=== PATIENT | male | born 1935 | race African-American/Black ===

== ENCOUNTER 2017-04-13 05:58 | Emergency (ER) | payer MEDICARE, MEDICAID ==
[~2017-04-13] VITALS: Ht 170.2 cm; Wt 70.0 kg
[~2017-04-13 05:58] MED LIST: AMLO10TA80; ASPI-1158; ATOR20TA65 PO; CILO100T; GABA-529; GEMF600T; LEVO25TA7 PO; LISINOPRIL; LORA2TAB95 PO; METO-539 PO; PREVACID; PROT40 PO
[2017-04-13] MEDS ORDERED: KETOROLAC 30MG/ML VIAL IV STA (06:43)
[2017-04-13 07:33] LABS: D-DIMER < 0.19 mg/L FEU (<0.50); PARTIAL THROMBOPLASTIN TIME 27.2 sec (23.4-31.0)
[2017-04-13 07:35] LABS: EOSINOPHILS % 1.8 % (0.0-5.0); HEMATOCRIT. 43.7 % (42.0-52.0); HEMOGLOBIN. 14.4 g/dL (14.0-18.0); LYMPHOCYTES % 29.7 % (20.0-50.0); MEAN CORPUSCULAR HEMOGLOBIN 31.5 pg (28.0-32.0); MEAN CORPUSCULAR VOLUME 95.6 fL (80.0-94.0); MONOCYTES % 7.6 % (2.0-8.0); NEUTROPHILS % 59.9 % (40.0-76.0); PLATELET 286 x1000/uL (130-400); RED BLOOD CELL COUNT 4.57 mill/uL (4.7-6.1); RED CELL DISTRIBUTION WIDTH 15.3 % (11.6-14.6)
[2017-04-13 07:36] LABS: CARBON DIOXIDE 25 mEq/L (21-32); CHLORIDE 94 mEq/L (98-107); ETHANOL BLOOD < 10 mg/dL; TROPONIN I < 0.02 ng/mL (0.00-0.04)
[2017-04-13] MEDS ORDERED: ONDANSETRON HCL 4MG/2ML VIAL IV ONE (08:15)
[2017-04-13] MEDS ORDERED: MORPHINE SULFATE 4 MG/ML CPJ (NOT FOR IM USE) IV ONE (08:15)
[2017-04-13 08:20] LABS: *AMPHETAMINES SCREEN URINE NEGATIVE (NEGATIVE); *BARBITURATES SCREEN URINE NEGATIVE (NEGATIVE); *BENZODIAZEPINES SCREEN URINE NEGATIVE (NEGATIVE); *COCAINE SCREEN URINE PRESUMTIVE POSITIVE (NEGATIVE); CANNABINOID URINE SCREEN NEGATIVE (NEGATIVE); METHADONE URINE SCREEN NEGATIVE (NEGATIVE); OPIATES URINE SCREEN NEGATIVE (NEGATIVE); PHENCYCLIDINE URINE SCREEN NEGATIVE (NEGATIVE)
[2017-04-13 10:32] VITALS: BP 144/60
[2017-04-24] MEDS ORDERED: LOV40 SQ (12:09)
[2017-04-24] MEDS ORDERED: DOCU-138 PO (12:10)
[2017-04-24] MEDS ORDERED: GABA-531 PO (12:12)
[2017-04-24] MEDS ORDERED: LORA2TAB2 PO (12:12)
[2017-04-24] MEDS ORDERED: HYDR-4133 PO (12:20)
[2017-04-24] MEDS ORDERED: EMTR1TAB12 PO (12:20)
[2017-04-24] MEDS ORDERED: ACET-2178 PO (12:20)
[2017-04-24] MEDS ORDERED: SIMV20TA2 PO (12:20)
[2017-04-24] MEDS ORDERED: HYDR-523 PO (12:20)
[2017-04-24] MEDS ORDERED: DOLU50TA PO (12:20)
[2017-04-24] MEDS ORDERED: LACT10SO6 PO (12:21)
== END 2017-04-13 10:46 | disposition home or self-care (01) ==
LOC: ER 05:58
DX: G62.9 Polyneuropathy, unspecified (principal); R07.89 Other chest pain; G89.29 Other chronic pain; F20.9 Schizophrenia, unspecified; K21.9 Gastro-esophageal reflux disease without esophagitis; F41.9 Anxiety disorder, unspecified; I10 Essential (primary) hypertension; F14.129 Cocaine abuse with intoxication, unspecified; Z79.82 Long term (current) use of aspirin; F14.10 Cocaine abuse, uncomplicated; G31.9 Degenerative disease of nervous system, unspecified; Z87.81 Personal history of (healed) traumatic fracture; R51 Headache
CPT/HCPCS: 36415; 70450; 71010; 80053; 80305; 84484; 85025; 85379; 85610; 85730; 93005; 93970; 96372; 96374; 96375; 99283; 99285; G0482; J1885; J2270; J2405

== ENCOUNTER 2017-04-13 11:56 | Emergency (ER) | payer MEDICARE, MEDICAID ==
[~2017-04-13] VITALS: Ht 154.9 cm; Wt 50.0 kg
[~2017-04-13 11:56] MED LIST changes: -METO-539 PO; +METO50TA5 PO
[2017-04-13] MEDS ORDERED: KETOROLAC 15MG/ML VIAL IM ONE (13:30)
[2017-04-13 14:50] VITALS: BP 165/84
== END 2017-04-13 14:53 | disposition home or self-care (01) ==
LOC: ER 13:46
DX: G62.9 Polyneuropathy, unspecified (principal); R03.0 Elevated blood-pressure reading, without diagnosis of hypertension; Z87.81 Personal history of (healed) traumatic fracture; Z79.82 Long term (current) use of aspirin; Z79.899 Other long term (current) drug therapy; Z87.891 Personal history of nicotine dependence
CPT/HCPCS: 96372; 99283; J1885

== ENCOUNTER 2017-06-04 00:37 | Emergency (ER) | payer MEDICARE, MEDICAID ==
[~2017-06-04] VITALS: Ht 157.5 cm; Wt 66.0 kg
[~2017-06-04 00:37] MED LIST changes: +ACET-2178 PO; +DOCU-138 PO; +DOLU50TA PO; +EMTR1TAB12 PO; -GABA-529; +GABA-531 PO; +HYDR-4133 PO; +HYDR-523 PO; +LACT10SO6 PO; +LORA2TAB2 PO; +LOV40 SQ; +METO-539 PO; -METO50TA5 PO; +SIMV20TA2 PO
[2017-06-04 06:27] VITALS: BP 148/72
[2017-06-04] MEDS: ACETAMINOPHEN 325MG TABLET PO ONE (06:45)
[2017-06-04 07:31] LABS: HEMATOCRIT. 30.9 % (42.0-52.0); HEMOGLOBIN. 10.3 g/dL (14.0-18.0); MEAN CORPUSCULAR HEMOGLOBIN 30.9 pg (28.0-32.0); MEAN CORPUSCULAR VOLUME 92.6 fL (80.0-94.0); PLATELET 342 x1000/uL (130-400); RED BLOOD CELL COUNT 3.33 mill/uL (4.7-6.1); RED CELL DISTRIBUTION WIDTH 14.3 % (11.6-14.6)
[2017-06-04 08:06] LABS: CARBON DIOXIDE 25 mEq/L (21-32); CHLORIDE 103 mEq/L (98-107)
[2017-06-04 09:38] LABS: ATYPICAL LYMPHOCYTES 1
[2017-06-04 09:39] LABS: PLATELET ESTIMATE NORMAL
== END 2017-06-04 08:36 | disposition home or self-care (01) ==
LOC: ER 00:37
DX: M79.605 Pain in left leg (principal); M79.604 Pain in right leg; E78.00 Pure hypercholesterolemia, unspecified; I10 Essential (primary) hypertension; F12.10 Cannabis abuse, uncomplicated; F17.200 Nicotine dependence, unspecified, uncomplicated; Z79.01 Long term (current) use of anticoagulants; Z79.82 Long term (current) use of aspirin; Z86.718 Personal history of other venous thrombosis and embolism
CPT/HCPCS: 36415; 80053; 85025; 85610; 93970; 99285

== ENCOUNTER 2017-06-06 01:53 | Emergency (ER) | payer MEDICARE, MEDICAID ==
[~2017-06-06] VITALS: Ht 180.3 cm; Wt 65.0 kg
[2017-06-06] MEDS ORDERED: ONDANSETRON HCL 4MG/2ML VIAL IV STA (02:02)
[2017-06-06] MEDS ORDERED: KETOROLAC 30MG/ML VIAL IV STA (02:02)
[2017-06-06] MEDS ORDERED: SODIUM CHLORIDE 0.9% 1,000 ML IV ONE (02:02)
[2017-06-06 02:20] LABS: HEMATOCRIT. 35.2 % (42.0-52.0); HEMOGLOBIN. 11.8 g/dL (14.0-18.0); MEAN CORPUSCULAR HEMOGLOBIN 31.1 pg (28.0-32.0); MEAN CORPUSCULAR VOLUME 92.7 fL (80.0-94.0); MEAN PLATELET VOLUME 6.6 fl (7.4-10.4); PLATELET 413 x1000/uL (130-400); RED CELL DISTRIBUTION WIDTH 14.3 % (11.6-14.6)
[2017-06-06 02:24] LABS: CHLORIDE 101 mEq/L (98-107); INR 0.9; PROTHROMBIN TIME 9.9 sec (9.4-11.6)
[2017-06-06 02:32] LABS: CARBON DIOXIDE 25 mEq/L (21-32); CREATINE KINASE 102 IU/L (39-308)
[2017-06-06] MEDS ORDERED: LORAZEPAM 1MG TABLET PO ONE ×2 (03:15→03:45)
[2017-06-06 03:59] LABS: PLATELET ESTIMATE NORMAL
[2017-06-06] MEDS ORDERED: IOHEXOL-350 100 ML BOTTLE ONE (05:10)
[2017-06-06 06:26] VITALS: BP 138/74
== END 2017-06-06 07:09 | disposition home or self-care (01) ==
LOC: ER 01:53
DX: I73.9 Peripheral vascular disease, unspecified (principal); R51 Headache; R05 Cough; I10 Essential (primary) hypertension; E78.00 Pure hypercholesterolemia, unspecified; F17.200 Nicotine dependence, unspecified, uncomplicated; F12.10 Cannabis abuse, uncomplicated; Z79.82 Long term (current) use of aspirin
CPT/HCPCS: 36415; 70450; 71010; 72191; 73706; 80053; 82550; 85025; 85610; 93970; 96361; 96374; 96375; 99285; J1885; J2405; J7030; Q9967

== ENCOUNTER 2017-07-27 06:54 | Emergency (ER) | payer MEDICARE, MEDICAID ==
[~2017-07-27] VITALS: Ht 160 cm; Wt 58.4 kg
[2017-07-27] MEDS ORDERED: ASPIRIN 81MG TABLET PO STA (08:22)
[2017-07-27 08:41] LABS: BASOPHILS % 1.3 % (0.0-2.0); EOSINOPHILS % 0.2 % (0.0-5.0); HEMATOCRIT. 36.6 % (42.0-52.0); HEMOGLOBIN. 11.7 g/dL (14.0-18.0); LYMPHOCYTES % 33.5 % (20.0-50.0); MEAN CORPUSCULAR HEMOGLOBIN 27.8 pg (28.0-32.0); MEAN CORPUSCULAR VOLUME 86.8 fL (80.0-94.0); MEAN PLATELET VOLUME 7.1 fl (7.4-10.4); MONOCYTES % 7.9 % (2.0-8.0); NEUTROPHILS % 57.1 % (40.0-76.0); PLATELET 420 x1000/uL (130-400); RED BLOOD CELL COUNT 4.22 mill/uL (4.7-6.1); RED CELL DISTRIBUTION WIDTH 15.4 % (11.6-14.6)
[2017-07-27 08:52] LABS: D-DIMER 0.27 mg/L FEU (<0.50); PARTIAL THROMBOPLASTIN TIME 26.1 sec (23.4-31.0); PROTHROMBIN TIME 10.6 sec (9.4-11.6)
[2017-07-27 08:57] LABS: CHLORIDE 103 mEq/L (98-107); TROPONIN I < 0.02 ng/mL (0.00-0.04)
[2017-07-27] MEDS ORDERED: CLONIDINE 0.2MG TABLET PO ONE (09:00)
[2017-07-27] MEDS: NITROGLYCERIN 0.4MG TABLET SL SL PRN ×3 (09:05→09:20)
[2017-07-27] MEDS ORDERED: SODIUM CHLORIDE 0.9% 1,000 ML IV ONE (09:44)
[2017-07-27] MEDS ORDERED: ONDANSETRON HCL 4MG/2ML VIAL IV STA (09:44)
[2017-07-27] MEDS ORDERED: MORPHINE SULFATE 4 MG/ML CPJ (NOT FOR IM USE) IV STA (09:44)
[2017-07-27] MEDS ORDERED: LORAZEPAM 2MG/ML CPJ IV ONE (09:45)
[2017-07-27 13:29] VITALS: BP 142/76
[2017-07-27] MEDS ORDERED: ONDANSETRON HCL 4MG/2ML VIAL IV PRN (17:00)
[2017-07-27] MEDS ORDERED: AMLODIPINE 10MG TABLET PO SCH (17:00)
[2017-07-27] MEDS ORDERED: ENOXAPARIN 40MG/0.4ML SYR SUBCUT SCH (17:00)
[2017-07-27] MEDS ORDERED: MAGNESIUM/ALUMINUM HYDROXIDE/SIMETHICONE 30ML UDC PO PRN (17:00)
[2017-07-27] MEDS ORDERED: CLONIDINE 0.1MG TABLET PO PRN (17:00)
[2017-07-27] MEDS ORDERED: IPRATROPIUM/ALBUTEROL 0.5-3(2.5)MG/3ML NEB INH PRN (17:00)
[2017-07-27] MEDS ORDERED: GUAIFENESIN 200MG/10ML SUGAR FREE UDC PO PRN (17:00)
[2017-07-27] MEDS ORDERED: DOCUSATE SODIUM 100MG CAPSULE PO PRN (17:00)
[2017-07-27] MEDS ORDERED: ACETAMINOPHEN 325MG TABLET PO PRN (17:00)
[2017-07-28] MEDS ORDERED: ASPIRIN 81MG EC TABLET PO SCH (09:00)
== END 2017-07-27 15:39 | disposition left against medical advice (07) ==
LOC: ER 07:28 → EDBEDREQTM 12:48 → EDBEDREQ 12:48 → ER 15:39 → SUPCPDRO 16:50 → ENRESERV 17:06 → CANRESERV 17:06 → CANBEDREQ 07-28 16:22
DX: R07.89 Other chest pain (principal); F14.10 Cocaine abuse, uncomplicated; I10 Essential (primary) hypertension; D64.9 Anemia, unspecified; R00.0 Tachycardia, unspecified; I45.10 Unspecified right bundle-branch block; F17.200 Nicotine dependence, unspecified, uncomplicated; Z79.82 Long term (current) use of aspirin
CPT/HCPCS: 36415; 71045; 80053; 84484; 85025; 85379; 85610; 85730; 93005; 96361; 96374; 96375; 99285; J2060; J2270; J2405; J7030

== ENCOUNTER 2017-08-10 06:11 | Emergency (ER) | payer MEDICARE, MEDICAID ==
[~2017-08-10] VITALS: Ht 172.7 cm; Wt 50.0 kg
[2017-08-10] MEDS ORDERED: SODIUM CHLORIDE 0.9% 1,000 ML IV ONE (06:58)
[2017-08-10] MEDS ORDERED: LORAZEPAM 1MG TABLET PO ONE (07:00)
[2017-08-10 07:26] LABS: BASOPHILS % 0.7 % (0.0-2.0); EOSINOPHILS % 0.5 % (0.0-5.0); HEMATOCRIT. 40.6 % (42.0-52.0); MEAN CORPUSCULAR HEMOGLOBIN 27.6 pg (28.0-32.0); MEAN PLATELET VOLUME 7.4 fl (7.4-10.4); MONOCYTES % 9.3 % (2.0-8.0); NEUTROPHILS % 67.5 % (40.0-76.0); PLATELET 304 x1000/uL (130-400); RED BLOOD CELL COUNT 4.72 mill/uL (4.7-6.1); RED CELL DISTRIBUTION WIDTH 15.6 % (11.6-14.6)
[2017-08-10 07:34] VITALS: BP 161/90
[2017-08-10 07:35] LABS: PROTHROMBIN TIME 10.2 sec (9.4-11.6)
[2017-08-10 07:52] LABS: CHLORIDE 102 mEq/L (98-107); TROPONIN I < 0.02 ng/mL (0.00-0.04)
[2017-08-10 09:00] LABS: CLARITY URINE CLEAR (CLEAR); COLOR URINE YELLOW (YELLOW); KETONES URINE NEGATIVE (NEGATIVE); LEUKOCYTE ESTERASE URINE NEGATIVE (NEGATIVE); NITRITE URINE NEGATIVE (NEGATIVE); OCCULT BLOOD URINE NEGATIVE (NEGATIVE); PROTEIN URINE NEGATIVE (NEGATIVE); SPECIFIC GRAVITY URINE 1.021 (1.005-1.030); UROBILINOGEN URINE 0.2 E.U./dL (0.2-1.0)
[2017-08-10 09:34] LABS: *AMPHETAMINES SCREEN URINE NEGATIVE (NEGATIVE); *BARBITURATES SCREEN URINE NEGATIVE (NEGATIVE); *BENZODIAZEPINES SCREEN URINE NEGATIVE (NEGATIVE); *COCAINE SCREEN URINE PRESUMTIVE POSITIVE (NEGATIVE); OPIATES URINE SCREEN NEGATIVE (NEGATIVE)
[2017-08-10 09:35] LABS: CANNABINOID URINE SCREEN NEGATIVE (NEGATIVE); METHADONE URINE SCREEN NEGATIVE (NEGATIVE); PHENCYCLIDINE URINE SCREEN NEGATIVE (NEGATIVE)
== END 2017-08-10 09:28 | disposition left against medical advice (07) ==
LOC: ER 06:11
DX: R20.2 Paresthesia of skin (principal); F41.9 Anxiety disorder, unspecified; F14.10 Cocaine abuse, uncomplicated; I10 Essential (primary) hypertension; E78.00 Pure hypercholesterolemia, unspecified; I73.9 Peripheral vascular disease, unspecified; E03.9 Hypothyroidism, unspecified; F17.200 Nicotine dependence, unspecified, uncomplicated; R00.0 Tachycardia, unspecified; J44.9 Chronic obstructive pulmonary disease, unspecified; Z87.820 Personal history of traumatic brain injury; Z79.82 Long term (current) use of aspirin
CPT/HCPCS: 36415; 71045; 80053; 80305; 81003; 84484; 85025; 85610; 93005; 96360; 99285; J7030

== ENCOUNTER 2018-12-13 05:33 | Emergency (ER) | payer MEDICARE, MEDICAID ==
[~2018-12-13] VITALS: Ht 170.2 cm; Wt 66.0 kg
[2018-12-13] MEDS ORDERED: LISINOPRIL 10MG TABLET PO ONE (06:15)
[2018-12-13 06:49] LABS: CLARITY URINE CLEAR (CLEAR); COLOR URINE YELLOW (YELLOW); KETONES URINE NEGATIVE (NEGATIVE); LEUKOCYTE ESTERASE URINE NEGATIVE (NEGATIVE); NITRITE URINE NEGATIVE (NEGATIVE); OCCULT BLOOD URINE NEGATIVE (NEGATIVE); PROTEIN URINE NEGATIVE (NEGATIVE); SPECIFIC GRAVITY URINE 1.003 (1.005-1.030); UROBILINOGEN URINE 0.2 E.U./dL (0.2-1.0)
[2018-12-13 07:03] LABS: METHADONE URINE SCREEN NEGATIVE (NEGATIVE); OPIATES URINE SCREEN NEGATIVE (NEGATIVE)
[2018-12-13 07:04] LABS: *AMPHETAMINES SCREEN URINE NEGATIVE (NEGATIVE); *BARBITURATES SCREEN URINE NEGATIVE (NEGATIVE); *BENZODIAZEPINES SCREEN URINE NEGATIVE (NEGATIVE); *COCAINE SCREEN URINE PRESUMTIVE POSITIVE (NEGATIVE); CANNABINOID URINE SCREEN NEGATIVE (NEGATIVE); PHENCYCLIDINE URINE SCREEN NEGATIVE (NEGATIVE)
[2018-12-13 07:20] VITALS: BP 164/87
== END 2018-12-13 07:31 | disposition home or self-care (01) ==
LOC: ER 05:33
DX: T40.5X1A Poisoning by cocaine, accidental (unintentional), initial encounter (principal); Y92.89 Other specified places as the place of occurrence of the external cause; I10 Essential (primary) hypertension; Z79.899 Other long term (current) drug therapy
CPT/HCPCS: 80305; 93005; 99284

== ENCOUNTER 2018-12-30 17:40 | Inpatient (IN) | payer MEDICARE, MEDICAID ==
[~2018-12-30] VITALS: Ht 165.1 cm; Wt 56.2 kg
[2018-12-30] MEDS ORDERED: MORPHINE SULFATE 4 MG/ML CPJ (NOT FOR IM USE) IV STA (19:04)
[2018-12-30] MEDS ORDERED: METHYLPREDNISOLONE SOD SUCC 125 MG/2 ML VIAL IV STA (19:04)
[2018-12-30] MEDS ORDERED: ONDANSETRON HCL 4MG/2ML INJ IV STA (19:04)
[2018-12-30] MEDS ORDERED: LEVOFLOXACIN 500MG PREMIX 100 ML IV ONE (19:15)
[2018-12-30] MEDS ORDERED: IPRATROPIUM/ALBUTEROL 0.5-3(2.5)MG/3ML NEB HHN ONE (19:15)
[2018-12-30 19:40] LABS: CLARITY URINE CLEAR (CLEAR); COLOR URINE YELLOW (YELLOW); KETONES URINE NEGATIVE (NEGATIVE); LEUKOCYTE ESTERASE URINE NEGATIVE (NEGATIVE); NITRITE URINE NEGATIVE (NEGATIVE); OCCULT BLOOD URINE NEGATIVE (NEGATIVE); PROTEIN URINE NEGATIVE (NEGATIVE); SPECIFIC GRAVITY URINE 1.001 (1.005-1.030); UROBILINOGEN URINE 0.2 E.U./dL (0.2-1.0)
[2018-12-30 19:52] LABS: *AMPHETAMINES SCREEN URINE NEGATIVE (NEGATIVE); *BARBITURATES SCREEN URINE NEGATIVE (NEGATIVE); *BENZODIAZEPINES SCREEN URINE NEGATIVE (NEGATIVE); *COCAINE SCREEN URINE NEGATIVE (NEGATIVE); METHADONE URINE SCREEN NEGATIVE (NEGATIVE); OPIATES URINE SCREEN NEGATIVE (NEGATIVE)
[2018-12-30 19:53] LABS: CANNABINOID URINE SCREEN NEGATIVE (NEGATIVE); PHENCYCLIDINE URINE SCREEN NEGATIVE (NEGATIVE)
[2018-12-30 19:58] LABS: BASOPHILS % 1.5 % (0.0-2.0); EOSINOPHILS % 3.2 % (0.0-5.0); HEMATOCRIT. 39.2 % (42.0-52.0); HEMOGLOBIN. 12.7 g/dL (14.0-18.0); LYMPHOCYTES % 45.5 % (20.0-50.0); MEAN CORPUSCULAR HEMOGLOBIN 27.8 pg (28.0-32.0); MEAN PLATELET VOLUME 7.8 fl (7.4-10.4); MONOCYTES % 10.1 % (2.0-8.0); NEUTROPHILS % 39.7 % (40.0-76.0); PLATELET 282 x1000/uL (130-400); RED BLOOD CELL COUNT 4.55 mill/uL (4.7-6.1); RED CELL DISTRIBUTION WIDTH 17.4 % (11.6-14.6)
[2018-12-30 20:03] LABS: CHLORIDE 95 mEq/L (98-107)
[2018-12-30 20:05] LABS: PARTIAL THROMBOPLASTIN TIME 26.7 sec (23.4-31.0); PROTHROMBIN TIME 9.8 sec (9.6-11.0)
[2018-12-30 20:07] LABS: ETHANOL BLOOD < 10 mg/dL
[2018-12-30] MEDS ORDERED: LORAZEPAM 2MG/ML CPJ IV ONE (20:15)
[2018-12-30 21:15] LABS: BG BASE EXCESS -0.4 mmol/L (-2.0-2.0); BG CARBOXYHEMOGLOBIN 1.2 % (0.5-1.5); BG DEOXYHEMOGLOBIN 5.2 % (0.0-5.0); BG FRACTION INSPIRED OXYGEN 21; BG HCO3 ACT 25.2 mmol/L (22.0-26.0); BG METHEMOGLOBIN 0.2 % (0.0-1.5); BG OXYGEN SATURATION 94.7 % (92.0-98.5); BG OXYHEMOGLOBIN 93.4 % (94.0-97.0); BG PCO2 44.9 mmHg (35.0-45.0); BG PH 7.367 (7.350-7.450); BG PO2 75.7 mmHg (75.0-100.0); BG SAMPLE SITE RIGHT RADIAL; BG TOTAL HEMOGLOBIN 12.7 g/dL (12.0-18.0); BG VENT MODE ROOM AIR
[2018-12-30] MEDS ORDERED: IPRATROPIUM/ALBUTEROL 0.5-3(2.5)MG/3ML NEB INH PRN (23:15)
[2018-12-30] MEDS ORDERED: GUAIFENESIN 200MG/10ML SUGAR FREE UDC PO PRN (23:15)
[2018-12-30] MEDS ORDERED: DOCUSATE SODIUM 100MG CAPSULE PO PRN (23:15)
[2018-12-30] MEDS ORDERED: ONDANSETRON HCL 4MG/2ML INJ IV PRN (23:15)
[2018-12-30] MEDS ORDERED: ACETAMINOPHEN 325MG TABLET PO PRN (23:15)
[2018-12-30] MEDS ORDERED: LEVOFLOXACIN 500MG PREMIX 100 ML IV SCH (23:15)
[2018-12-30 23:43] VITALS: BP 156/57
[2018-12-31 00:30] VITALS: BP 156/67
[2018-12-31] MEDS: HYDROCODONE/ACETAMINOPHEN 5/325MG TABLET PO PRN ×2 (01:01→07:10)
[2018-12-31] MEDS: IPRATROPIUM/ALBUTEROL 0.5-3(2.5)MG/3ML NEB INH SCH ×4 (01:27→20:53)
[2018-12-31] MEDS: MORPHINE SULFATE 2 MG/ML CPJ (NOT FOR IM USE) IV PRN ×3 (03:47→20:22)
[2018-12-31 04:00] VITALS: BP 159/62
[2018-12-31 06:07] LABS: CHLORIDE 100 mEq/L (98-107)
[2018-12-31 06:26] LABS: BASOPHILS % 0.3 % (0.0-2.0); EOSINOPHILS % 0.1 % (0.0-5.0); HEMATOCRIT. 39.5 % (42.0-52.0); HEMOGLOBIN. 12.8 g/dL (14.0-18.0); LYMPHOCYTES % 13.1 % (20.0-50.0); MEAN CORPUSCULAR VOLUME 86.2 fL (80.0-94.0); MEAN PLATELET VOLUME 8.3 fl (7.4-10.4); MONOCYTES % 0.6 % (2.0-8.0); NEUTROPHILS % 85.9 % (40.0-76.0); PLATELET 277 x1000/uL (130-400); RED BLOOD CELL COUNT 4.58 mill/uL (4.7-6.1); RED CELL DISTRIBUTION WIDTH 17.4 % (11.6-14.6)
[2018-12-31] MEDS: METHYLPREDNISOLONE SOD SUCC 125 MG/2 ML VIAL IV SCH ×4 (06:35→23:44)
[2018-12-31 08:00] VITALS: BP 174/65
[2018-12-31] MEDS ORDERED: PNEUMOCOCCAL 23-VAL P-SAC VAC 0.5 ML IM ONE (08:00)
[2018-12-31] MEDS: ENOXAPARIN 40MG/0.4ML SYR SUBCUT SCH (09:00)
[2018-12-31] MEDS: ASPIRIN 81MG EC TABLET PO SCH (09:00)
[2018-12-31] MEDS: AMLODIPINE 10MG TABLET PO SCH (09:03)
[2018-12-31] MEDS: NICOTINE 21MG PATCH TD SCH (11:55)
[2018-12-31 12:00] VITALS: BP 169/64
[2018-12-31 16:00] VITALS: BP 132/60
[2018-12-31 20:00] VITALS: BP 162/57
[2018-12-31] MEDS: LEVOFLOXACIN 500MG PREMIX 100 ML IV SCH (22:35)
[2019-01-01] VITALS (8 sets, daily range): BP systolic 147–178; BP diastolic 55–72
[2019-01-01] MEDS: HYDROCODONE/ACETAMINOPHEN 5/325MG TABLET PO PRN (00:29)
[2019-01-01] MEDS: IPRATROPIUM/ALBUTEROL 0.5-3(2.5)MG/3ML NEB INH SCH ×4 (00:57→20:55)
[2019-01-01] MEDS ORDERED: HALOPERIDOL LACTATE 5MG/ML VIAL IM NR (04:00)
[2019-01-01] MEDS: METHYLPREDNISOLONE SOD SUCC 125 MG/2 ML VIAL IV SCH ×2 (05:09→14:39)
[2019-01-01] MEDS: ASPIRIN 81MG EC TABLET PO SCH (09:14)
[2019-01-01] MEDS: AMLODIPINE 10MG TABLET PO SCH (09:15)
[2019-01-01] MEDS: NICOTINE 21MG PATCH TD SCH (09:16)
[2019-01-01] MEDS: ENOXAPARIN 40MG/0.4ML SYR SUBCUT SCH (09:16)
[2019-01-01] MEDS: LORAZEPAM 2MG/ML CPJ IV PRN ×2 (09:17→20:25)
[2019-01-01] MEDS: QUETIAPINE FUMARATE 25MG TABLET PO SCH ×2 (11:22→21:13)
[2019-01-01] MEDS ORDERED: HALOPERIDOL 0.5MG TABLET PO PRN (14:30)
[2019-01-01] MEDS ORDERED: HALOPERIDOL LACTATE 5MG/ML VIAL IM PRN (15:00)
[2019-01-01] MEDS: HALOPERIDOL LACTATE 5MG/ML VIAL IM PRN (15:01)
[2019-01-01] MEDS ORDERED: DIPHENHYDRAMINE 50MG/ML VIAL IV PRN (16:45)
[2019-01-01] MEDS: HYDRALAZINE 20MG/ML VIAL IV PRN (17:08)
[2019-01-01] MEDS ORDERED: BICT1TAB PO (19:20)
[2019-01-01] MEDS ORDERED: OMEP40CA34 PO (19:21)
[2019-01-01] MEDS: BUDESONIDE 0.5MG/2ML NEB HHN SCH (20:55)
[2019-01-01] MEDS: GUAIFENESIN 600MG ER TABLET PO SCH (21:13)
[2019-01-01] MEDS: LEVOFLOXACIN 500MG PREMIX 100 ML IV SCH (21:14)
[2019-01-01] MEDS: METHYLPREDNISOLONE SOD SUCC 40 MG/ML VIAL IV SCH (21:14)
[2019-01-02] VITALS: BP 162/60
[2019-01-02] MEDS: IPRATROPIUM/ALBUTEROL 0.5-3(2.5)MG/3ML NEB INH SCH ×3 (02:00→21:05)
[2019-01-02 04:00] VITALS: BP 127/52
[2019-01-02] MEDS: METHYLPREDNISOLONE SOD SUCC 40 MG/ML VIAL IV SCH (05:08)
[2019-01-02] MEDS: HALOPERIDOL LACTATE 5MG/ML VIAL IM PRN (07:52)
[2019-01-02 08:00] VITALS: BP 159/75
[2019-01-02] MEDS: BUDESONIDE 0.5MG/2ML NEB HHN SCH ×2 (08:42→21:04)
[2019-01-02] MEDS: GUAIFENESIN 600MG ER TABLET PO SCH ×2 (08:44→20:21)
[2019-01-02] MEDS: QUETIAPINE FUMARATE 25MG TABLET PO SCH ×2 (08:44→20:21)
[2019-01-02] MEDS: ASPIRIN 81MG EC TABLET PO SCH (08:44)
[2019-01-02] MEDS: AMLODIPINE 10MG TABLET PO SCH (08:44)
[2019-01-02] MEDS: ENOXAPARIN 40MG/0.4ML SYR SUBCUT SCH (08:45)
[2019-01-02] MEDS: NICOTINE 21MG PATCH TD SCH (09:42)
[2019-01-02 12:00] VITALS: BP 140/61
[2019-01-02 16:00] VITALS: BP 150/63
[2019-01-02 20:00] VITALS: BP 164/77
[2019-01-02] MEDS: HYDRALAZINE 20MG/ML VIAL IV PRN (20:21)
[2019-01-02] MEDS ORDERED: LEVOFLOXACIN 500MG TABLET PO SCH (21:00)
[2019-01-02] MEDS: LORAZEPAM 2MG/ML CPJ IV PRN (22:30)
[2019-01-03] VITALS: BP 125/61
[2019-01-03] MEDS: IPRATROPIUM/ALBUTEROL 0.5-3(2.5)MG/3ML NEB INH SCH ×3 (01:52→13:14)
[2019-01-03 04:00] VITALS: BP 130/67
[2019-01-03 08:00] VITALS: BP 142/68
[2019-01-03] MEDS: ENOXAPARIN 40MG/0.4ML SYR SUBCUT SCH (08:50)
[2019-01-03] MEDS: NICOTINE 21MG PATCH TD SCH (08:50)
[2019-01-03] MEDS: GUAIFENESIN 600MG ER TABLET PO SCH (08:51)
[2019-01-03] MEDS: QUETIAPINE FUMARATE 25MG TABLET PO SCH (08:51)
[2019-01-03] MEDS: ASPIRIN 81MG EC TABLET PO SCH (08:51)
[2019-01-03] MEDS: AMLODIPINE 10MG TABLET PO SCH (08:51)
[2019-01-03] MEDS ORDERED: METHYLPREDNISOLONE SOD SUCC 40 MG/ML VIAL IV SCH (09:00)
[2019-01-03] MEDS: BUDESONIDE 0.5MG/2ML NEB HHN SCH (09:17)
[2019-01-03 12:00] VITALS: BP 133/66
[2019-01-03 13:40] VITALS: BP 133/66
== END 2019-01-03 16:10 | disposition home or self-care (01) | DRG 189 ==
LOC: ER 17:40 → 5WST 21:48 → EDBEDREQ 21:50 → EDBEDREQTM 21:50 → ENRESERV 23:08 → 5WST 01-01 08:24
PROVIDERS: ADMIT Hospitalist; ATTEND Hospitalist
DX: J96.00 Acute respiratory failure, unspecified whether with hypoxia or hypercapnia (principal); J44.1 Chronic obstructive pulmonary disease with (acute) exacerbation; E03.9 Hypothyroidism, unspecified; E78.5 Hyperlipidemia, unspecified; F17.210 Nicotine dependence, cigarettes, uncomplicated; I10 Essential (primary) hypertension; F14.10 Cocaine abuse, uncomplicated; Z79.82 Long term (current) use of aspirin; Z79.899 Other long term (current) drug therapy; Z71.6 Tobacco abuse counseling; Z78.1 Physical restraint status
CPT/HCPCS: 36415; 36600; 71045; 80305; 80320; 82375; 82805; 83605; 83880; 84484; 90732; 93005; 93970; 94640; 96365; 96375; 99285; J0360; J1630; J1650; J1956; J2060; J2270; J2405; J2920; J2930; J7050; J7620; J7626; G0480

== ENCOUNTER 2020-05-18 17:15 | Emergency (ER) | payer MEDICARE, MEDICAID ==
[~2020-05-18] VITALS: Ht 167.6 cm; Wt 71.0 kg
[~2020-05-18 17:15] MED LIST changes: -ACET-2178 PO; +BICT1TAB PO; +OMEP40CA12 PO; +TOPUD PO
[2020-05-18 18:01] VITALS: BP 121/76
== END 2020-05-18 18:57 | disposition home or self-care (01) ==
LOC: ER 17:15
DX: Z53.21 Procedure and treatment not carried out due to patient leaving prior to being seen by health care provider (principal)

== ENCOUNTER 2020-08-04 19:19 | Inpatient (IN) | payer MEDICARE, MEDICAID ==
[~2020-08-04] VITALS: Ht 170.2 cm; Wt 68.5 kg
[~2020-08-04 19:19] MED LIST changes: -ASPI-1158; +ASPI-1406; -GABA-531 PO; +GABA-532 PO
[2020-08-04] MEDS ORDERED: ACETAMINOPHEN 325MG TABLET PO ONE (20:45)
[2020-08-04 22:48] LABS: CHLORIDE 103 mEq/L (98-107)
[2020-08-05 01:53] VITALS: BP 159/79
[2020-08-05 04:00] VITALS: BP 118/62
[2020-08-05] MEDS ORDERED: MORPHINE SULFATE 2 MG/ML CPJ (NOT FOR IM USE) IV PRN (06:45)
[2020-08-05] MEDS ORDERED: IPRATROPIUM/ALBUTEROL 0.5-3(2.5)MG/3ML NEB HHN PRN (06:45)
[2020-08-05 08:00] VITALS: BP 140/59
[2020-08-05] MEDS ORDERED: LEVOFLOXACIN 500MG PREMIX 100 ML IV SCH (08:00)
[2020-08-05] MEDS ORDERED: IPRATROPIUM/ALBUTEROL 0.5-3(2.5)MG/3ML NEB HHN SCH (08:00)
[2020-08-05] MEDS ORDERED: LORAZEPAM 2MG/ML CPJ IV PRN (10:15)
[2020-08-05] MEDS ORDERED: RISPERIDONE 0.5MG TABLET PO SCH ×2 (10:15→12:45)
[2020-08-05] MEDS ORDERED: ACETAMINOPHEN 325MG TABLET PO PRN (11:15)
[2020-08-05] MEDS ORDERED: TRAMADOL 50MG TABLET PO PRN (11:15)
[2020-08-05] MEDS ORDERED: LORAZEPAM 1MG TABLET PO PRN (12:45)
[2020-08-05 13:00] VITALS: BP 145/55
== END 2020-08-05 16:05 | disposition left against medical advice (07) | DRG 641 ==
LOC: EDBD → ER 19:19 → 8WST 22:17 → ENRESERV 23:40
PROVIDERS: ADMIT Internal Medicine; ATTEND Internal Medicine
DX: E87.1 Hypo-osmolality and hyponatremia (principal); F05 Delirium due to known physiological condition; F03.90 Unspecified dementia, unspecified severity, without behavioral disturbance, psychotic disturbance, mood disturbance, and anxiety; I10 Essential (primary) hypertension; J44.9 Chronic obstructive pulmonary disease, unspecified; Z79.891 Long term (current) use of opiate analgesic; Z79.899 Other long term (current) drug therapy; Z79.82 Long term (current) use of aspirin
CPT/HCPCS: 36415; 71045; 80053; 83880; 84484; 93005; 99285; J1956; J2270

== ENCOUNTER 2020-08-07 05:42 | Emergency (ER) | payer MEDICARE, MEDICAID ==
[~2020-08-07] VITALS: Ht 172.7 cm; Wt 73.0 kg
[2020-08-07 06:38] LABS: BASOPHILS % 1.5 % (0.0-2.0); EOSINOPHILS % 4.9 % (0.0-5.0); HEMATOCRIT. 39.4 % (42.0-52.0); LYMPHOCYTES % 48.4 % (20.0-50.0); MEAN CORPUSCULAR HEMOGLOBIN 24.5 pg (28.0-32.0); MEAN CORPUSCULAR VOLUME 80.1 fL (80.0-94.0); MEAN PLATELET VOLUME 7.7 fl (7.4-10.4); MONOCYTES % 9.3 % (2.0-8.0); NEUTROPHILS % 35.9 % (40.0-76.0); PLATELET 339 x1000/uL (130-400); RED BLOOD CELL COUNT 4.92 mill/uL (4.7-6.1); RED CELL DISTRIBUTION WIDTH 17.5 % (11.6-14.6)
[2020-08-07 06:44] LABS: CHLORIDE 104 mEq/L (98-107)
[2020-08-07] MEDS ORDERED: ACETAMINOPHEN 325MG TABLET PO ONE (07:15)
[2020-08-07 08:32] VITALS: BP 136/60
== END 2020-08-07 09:12 | disposition home or self-care (01) ==
LOC: EDBD → ER 06:02
DX: M79.18 Myalgia, other site (principal); I10 Essential (primary) hypertension; J44.9 Chronic obstructive pulmonary disease, unspecified; F03.90 Unspecified dementia, unspecified severity, without behavioral disturbance, psychotic disturbance, mood disturbance, and anxiety
CPT/HCPCS: 36415; 71045; 80053; 83880; 84484; 85025; 93005; 99285

== ENCOUNTER 2020-08-25 15:22 | Emergency (ER) | payer MEDICARE, MEDICAID ==
[~2020-08-25] VITALS: Ht 175.3 cm; Wt 73.0 kg
[2020-08-25] MEDS ORDERED: ACETAMINOPHEN 325MG TABLET PO ONE (18:00)
[2020-08-25 20:59] LABS: BASOPHILS % 1.3 % (0.0-2.0); EOSINOPHILS % 2.5 % (0.0-5.0); HEMATOCRIT. 35.8 % (42.0-52.0); HEMOGLOBIN. 11.2 g/dL (14.0-18.0); LYMPHOCYTES % 50.1 % (20.0-50.0); MEAN CORPUSCULAR HEMOGLOBIN 24.4 pg (28.0-32.0); MEAN CORPUSCULAR VOLUME 77.8 fL (80.0-94.0); MEAN PLATELET VOLUME 8.1 fl (7.4-10.4); MONOCYTES % 11.1 % (2.0-8.0); PLATELET 290 x1000/uL (130-400); RED CELL DISTRIBUTION WIDTH 16.6 % (11.6-14.6)
[2020-08-25 21:09] LABS: CHLORIDE 104 mEq/L (98-107)
[2020-08-26] MEDS ORDERED: CEPH500C2 MT (00:12)
[2020-08-26] MEDS ORDERED: CLOT15CR27 TP (00:13)
[2020-08-26 00:30] LABS: CLARITY URINE CLEAR (CLEAR); COLOR URINE YELLOW (YELLOW); KETONES URINE NEGATIVE (NEGATIVE); LEUKOCYTE ESTERASE URINE NEGATIVE (NEGATIVE); NITRITE URINE NEGATIVE (NEGATIVE); OCCULT BLOOD URINE NEGATIVE (NEGATIVE); PROTEIN URINE NEGATIVE (NEGATIVE); UROBILINOGEN URINE 0.2 E.U./dL (0.2-1.0)
[2020-08-26 01:02] VITALS: BP 151/64
== END 2020-08-26 01:27 | disposition home or self-care (01) ==
LOC: ER 15:22
DX: N48.1 Balanitis (principal); N39.0 Urinary tract infection, site not specified; R51.9 Headache, unspecified; I10 Essential (primary) hypertension; Z79.899 Other long term (current) drug therapy
CPT/HCPCS: 36415; 71045; 80053; 81003; 83880; 84484; 85025; 93005; 99285

== ENCOUNTER 2020-09-01 14:45 | Emergency (ER) | payer MEDICARE, MEDICAID ==
[~2020-09-01] VITALS: Ht 167.6 cm; Wt 75.0 kg
[~2020-09-01 14:45] MED LIST changes: +CEPH500C2 MT; +CLOT15CR27 TP
[2020-09-01 14:49] VITALS: BP 186/90
[2020-09-01 17:05] LABS: BASOPHILS % 0.7 % (0.0-2.0); EOSINOPHILS % 1.7 % (0.0-5.0); HEMOGLOBIN. 10.8 g/dL (14.0-18.0); LYMPHOCYTES % 44.2 % (20.0-50.0); MEAN CORPUSCULAR HEMOGLOBIN 24.1 pg (28.0-32.0); MEAN CORPUSCULAR VOLUME 78.2 fL (80.0-94.0); MEAN PLATELET VOLUME 7.9 fl (7.4-10.4); MONOCYTES % 9.5 % (2.0-8.0); NEUTROPHILS % 43.9 % (40.0-76.0); PLATELET 293 x1000/uL (130-400); RED BLOOD CELL COUNT 4.47 mill/uL (4.7-6.1); RED CELL DISTRIBUTION WIDTH 17.1 % (11.6-14.6)
[2020-09-01 17:06] LABS: CHLORIDE 106 mEq/L (98-107)
[2020-09-01] MEDS: ACETAMINOPHEN 500MG TABLET PO ONE (17:29)
[2020-09-01] MEDS ORDERED: TOPUD PO (17:44)
[2020-09-01 18:28] LABS: CLARITY URINE CLOUDY (CLEAR); COLOR URINE YELLOW (YELLOW); KETONES URINE NEGATIVE (NEGATIVE); LEUKOCYTE ESTERASE URINE NEGATIVE (NEGATIVE); NITRITE URINE NEGATIVE (NEGATIVE); OCCULT BLOOD URINE NEGATIVE (NEGATIVE); PH URINE 7.5 (4.5-8.0); PROTEIN URINE NEGATIVE (NEGATIVE); SPECIFIC GRAVITY URINE 1.017 (1.005-1.030)
[2020-09-01] MEDS ORDERED: CIPR500T5 MT (22:35)
== END 2020-09-01 18:06 | disposition home or self-care (01) ==
LOC: ER 14:57
DX: Z71.1 Person with feared health complaint in whom no diagnosis is made (principal); I10 Essential (primary) hypertension; Z79.899 Other long term (current) drug therapy; Z79.82 Long term (current) use of aspirin; Z98.890 Other specified postprocedural states
CPT/HCPCS: 36415; 76870; 80053; 81003; 85025; 93976; 99284

== ENCOUNTER 2020-09-01 18:17 | Emergency (ER) | payer MEDICARE, MEDICAID ==
[~2020-09-01] VITALS: Ht 167.6 cm; Wt 76.0 kg
[2020-09-01] MEDS ORDERED: ACETAMINOPHEN 325MG TABLET PO ONE (20:45)
[2020-09-01 21:51] LABS: CLARITY URINE CLEAR (CLEAR); COLOR URINE YELLOW (YELLOW); KETONES URINE NEGATIVE (NEGATIVE); LEUKOCYTE ESTERASE URINE TRACE (NEGATIVE); NITRITE URINE NEGATIVE (NEGATIVE); OCCULT BLOOD URINE NEGATIVE (NEGATIVE); PROTEIN URINE NEGATIVE (NEGATIVE); SPECIFIC GRAVITY URINE 1.021 (1.005-1.030)
[2020-09-01 22:07] LABS: *BENZODIAZEPINES SCREEN URINE NEGATIVE (NEGATIVE); *COCAINE SCREEN URINE NEGATIVE (NEGATIVE)
[2020-09-01 22:08] LABS: *AMPHETAMINES SCREEN URINE NEGATIVE (NEGATIVE); *BARBITURATES SCREEN URINE NEGATIVE (NEGATIVE); CANNABINOID URINE SCREEN NEGATIVE (NEGATIVE); METHADONE URINE SCREEN NEGATIVE (NEGATIVE); OPIATES URINE SCREEN NEGATIVE (NEGATIVE); PHENCYCLIDINE URINE SCREEN NEGATIVE (NEGATIVE)
[2020-09-01 22:13] LABS: HEMATOCRIT. 35.1 % (42.0-52.0); HEMOGLOBIN. 10.4 g/dL (14.0-18.0); MEAN CORPUSCULAR HEMOGLOBIN 23.6 pg (28.0-32.0); MEAN CORPUSCULAR VOLUME 79.3 fL (80.0-94.0); MEAN PLATELET VOLUME 7.9 fl (7.4-10.4); PLATELET 268 x1000/uL (130-400); RED BLOOD CELL COUNT 4.42 mill/uL (4.7-6.1); RED CELL DISTRIBUTION WIDTH 17.1 % (11.6-14.6)
[2020-09-01 22:19] LABS: CHLORIDE 106 mEq/L (98-107)
[2020-09-01 22:26] LABS: ETHANOL BLOOD < 10 mg/dL
[2020-09-01 22:31] LABS: PLATELET ESTIMATE NORMAL
[2020-09-01] MEDS ORDERED: CIPR500T5 MT (22:35)
[2020-09-01 23:57] VITALS: BP 145/76
== END 2020-09-01 23:59 | disposition home or self-care (01) ==
LOC: EDBD → ER 18:17
DX: N39.0 Urinary tract infection, site not specified (principal); Z20.822 Contact with and (suspected) exposure to COVID-19; Z79.899 Other long term (current) drug therapy
CPT/HCPCS: 36415; 71045; 76870; 80053; 80305; 80320; 81003; 83605; 83690; 83880; 84484; 85025; 87086; 93976; 99284; C9803; U0003; G0480

== ENCOUNTER 2020-09-06 14:50 | Emergency (ER) | payer MEDICARE, MEDICAID ==
[~2020-09-06] VITALS: Ht 177.8 cm; Wt 77.0 kg
[~2020-09-06 14:50] MED LIST changes: +CIPR500T5 MT
[2020-09-06] MEDS ORDERED: ACETAMINOPHEN 325MG TABLET PO ONE (16:15)
[2020-09-06 19:00] VITALS: BP 149/66
[2020-09-07] MEDS ORDERED: FERR324T4 MT (00:28)
[2020-09-07] MEDS ORDERED: ACET-2708 MT (00:28)
== END 2020-09-06 19:00 | disposition home or self-care (01) ==
LOC: EDBD → ER 15:02
DX: E11.42 Type 2 diabetes mellitus with diabetic polyneuropathy (principal); I10 Essential (primary) hypertension; Z13.9 Encounter for screening, unspecified; Z79.899 Other long term (current) drug therapy
CPT/HCPCS: 93970; 99284

== ENCOUNTER 2020-09-06 21:17 | Emergency (ER) | payer MEDICARE, MEDICAID ==
[~2020-09-06] VITALS: Ht 165.1 cm; Wt 70.0 kg
[2020-09-06] MEDS ORDERED: ACETAMINOPHEN 325MG TABLET PO ONE (22:45)
[2020-09-06 23:18] LABS: BASOPHILS % 0.9 % (0.0-2.0); EOSINOPHILS % 2.1 % (0.0-5.0); HEMATOCRIT. 33.1 % (42.0-52.0); HEMOGLOBIN. 9.9 g/dL (14.0-18.0); LYMPHOCYTES % 48.6 % (20.0-50.0); MEAN CORPUSCULAR HEMOGLOBIN 23.1 pg (28.0-32.0); MEAN CORPUSCULAR VOLUME 77.4 fL (80.0-94.0); MEAN PLATELET VOLUME 7.7 fl (7.4-10.4); MONOCYTES % 10.1 % (2.0-8.0); NEUTROPHILS % 38.3 % (40.0-76.0); PLATELET 285 x1000/uL (130-400); RED BLOOD CELL COUNT 4.27 mill/uL (4.7-6.1)
[2020-09-06 23:24] LABS: CHLORIDE 107 mEq/L (98-107)
[2020-09-07] MEDS ORDERED: ACET-2708 MT (00:28)
[2020-09-07] MEDS ORDERED: FERR324T4 MT (00:28)
[2020-09-07 01:01] VITALS: BP 168/82
== END 2020-09-07 01:19 | disposition home or self-care (01) ==
LOC: ER 21:17
DX: M79.18 Myalgia, other site (principal); D64.9 Anemia, unspecified; N50.89 Other specified disorders of the male genital organs; I10 Essential (primary) hypertension; J44.9 Chronic obstructive pulmonary disease, unspecified
CPT/HCPCS: 36415; 71045; 80053; 85025; 99284

== ENCOUNTER 2020-09-12 19:51 | Emergency (ER) | payer MEDICARE, MEDICAID ==
[~2020-09-12] VITALS: Ht 162.6 cm; Wt 160.0 kg
[~2020-09-12 19:51] MED LIST changes: +ACET-2708 MT; +FERR324T4 MT
[2020-09-12] MEDS ORDERED: ACETAMINOPHEN 325MG TABLET PO ONE (20:45)
[2020-09-12 21:05] VITALS: BP 158/80
== END 2020-09-12 21:12 | disposition home or self-care (01) ==
LOC: ER 19:51
DX: R53.81 Other malaise (principal); I10 Essential (primary) hypertension; Z79.899 Other long term (current) drug therapy; Z79.82 Long term (current) use of aspirin
CPT/HCPCS: 99283

== ENCOUNTER 2020-09-27 08:27 | Emergency (ER) | payer MEDICARE, MEDICAID ==
[~2020-09-27] VITALS: Ht 172.7 cm; Wt 73.0 kg
[2020-09-27] MEDS ORDERED: KETOROLAC 30MG/ML VIAL IV STA (08:51)
[2020-09-27 09:15] VITALS: BP 183/110
[2020-09-27 09:56] LABS: BASOPHILS % 1.4 % (0.0-2.0); EOSINOPHILS % 2.7 % (0.0-5.0); HEMATOCRIT. 34.3 % (42.0-52.0); LYMPHOCYTES % 38.1 % (20.0-50.0); MEAN CORPUSCULAR HEMOGLOBIN 24.5 pg (28.0-32.0); MEAN CORPUSCULAR VOLUME 76.6 fL (80.0-94.0); MEAN PLATELET VOLUME 7.7 fl (7.4-10.4); MONOCYTES % 9.5 % (2.0-8.0); NEUTROPHILS % 48.3 % (40.0-76.0); PLATELET 319 x1000/uL (130-400); RED BLOOD CELL COUNT 4.48 mill/uL (4.7-6.1); RED CELL DISTRIBUTION WIDTH 17.4 % (11.6-14.6)
[2020-09-27 10:03] LABS: CHLORIDE 106 mEq/L (98-107)
[2020-09-27 10:09] LABS: INR 0.9; PROTHROMBIN TIME 10.2 sec (9.6-11.0)
== END 2020-09-27 10:24 | disposition home or self-care (01) ==
LOC: ER 08:39
DX: R51.9 Headache, unspecified (principal); I10 Essential (primary) hypertension
CPT/HCPCS: 36415; 80053; 85025; 85610; 96374; 99283; J1885

== ENCOUNTER 2020-10-15 16:01 | Emergency (ER) | payer MEDICARE, MEDICAID ==
[~2020-10-15] VITALS: Ht 172.7 cm; Wt 63.0 kg
[2020-10-15] MEDS ORDERED: ACETAMINOPHEN 325MG TABLET PO ONE (16:30)
[2020-10-15 17:02] LABS: BASOPHILS % 1.9 % (0.0-2.0); EOSINOPHILS % 2.1 % (0.0-5.0); HEMATOCRIT. 35.2 % (42.0-52.0); HEMOGLOBIN. 11.1 g/dL (14.0-18.0); LYMPHOCYTES % 43.5 % (20.0-50.0); MEAN CORPUSCULAR HEMOGLOBIN 24.1 pg (28.0-32.0); MEAN CORPUSCULAR VOLUME 76.9 fL (80.0-94.0); MEAN PLATELET VOLUME 7.6 fl (7.4-10.4); MONOCYTES % 10.6 % (2.0-8.0); NEUTROPHILS % 41.9 % (40.0-76.0); PLATELET 353 x1000/uL (130-400); RED BLOOD CELL COUNT 4.58 mill/uL (4.7-6.1); RED CELL DISTRIBUTION WIDTH 17.5 % (11.6-14.6)
[2020-10-15 17:09] LABS: CHLORIDE 107 mEq/L (98-107)
[2020-10-15] MEDS ORDERED: ACET-2708 MT (17:29)
[2020-10-15 17:55] VITALS: BP 149/66
== END 2020-10-15 18:58 | disposition home or self-care (01) ==
LOC: ER 16:01
DX: M79.18 Myalgia, other site (principal); F41.9 Anxiety disorder, unspecified; J44.9 Chronic obstructive pulmonary disease, unspecified; I10 Essential (primary) hypertension; Z79.82 Long term (current) use of aspirin; Z79.899 Other long term (current) drug therapy
CPT/HCPCS: 36415; 71045; 80053; 84484; 85025; 99284

== ENCOUNTER 2020-10-28 14:24 | Emergency (ER) | payer MEDICARE, MEDICAID ==
[~2020-10-28] VITALS: Ht 175.3 cm; Wt 73.0 kg
[2020-10-28 14:32] VITALS: BP 168/72
[2020-10-28] MEDS ORDERED: MUPI15CR11 TP (15:43)
[2020-10-28] MEDS ORDERED: CEPH500T MT (15:43)
[2020-10-28] MEDS ORDERED: DOXY100C2 MT (15:43)
[2020-10-28] MEDS ORDERED: ACETAMINOPHEN 325MG TABLET PO ONE (16:00)
[2020-11-06] MEDS ORDERED: FOLI-43 PO (18:43)
[2020-11-06] MEDS ORDERED: THIA100T72 PO (18:43)
[2020-11-08] MEDS ORDERED: AMLO10TA4 MT (15:11)
[2020-11-08] MEDS ORDERED: CLOP75TA15 PO (15:22)
[2020-11-08] MEDS ORDERED: ATOR20TA PO (15:22)
[2020-11-08] MEDS ORDERED: MEMA5TAB7 PO (15:22)
== END 2020-10-28 16:14 | disposition left against medical advice (07) ==
LOC: ER 14:38
DX: B34.9 Viral infection, unspecified (principal); I10 Essential (primary) hypertension; Z20.822 Contact with and (suspected) exposure to COVID-19; J44.9 Chronic obstructive pulmonary disease, unspecified; F41.0 Panic disorder [episodic paroxysmal anxiety]
CPT/HCPCS: 87426; 99284

== ENCOUNTER 2020-10-28 17:48 | Emergency (ER) | payer MEDICARE, MEDICAID ==
[~2020-10-28] VITALS: Ht 162.6 cm; Wt 65.0 kg
[~2020-10-28 17:48] MED LIST changes: +CEPH500T MT; +DOXY100C2 MT; +MUPI15CR11 TP
[2020-10-28] MEDS ORDERED: ACETAMINOPHEN 325MG TABLET PO STA (19:34)
[2020-10-28] MEDS ORDERED: MAGNESIUM/ALUMINUM HYDROXIDE/SIMETHICONE 30ML UDC PO STA (19:34)
[2020-10-28] MEDS ORDERED: DICYCLOMINE 10 MG/5 ML ORAL SYR PO STA (19:34)
[2020-10-28] MEDS ORDERED: VISCOUS LIDOCAINE 2% 15 ML UDC PO STA (19:34)
[2020-10-28 19:51] LABS: BASOPHILS % 1.3 % (0.0-2.0); EOSINOPHILS % 0.9 % (0.0-5.0); HEMATOCRIT. 34.7 % (42.0-52.0); HEMOGLOBIN. 10.9 g/dL (14.0-18.0); LYMPHOCYTES % 28.2 % (20.0-50.0); MEAN CORPUSCULAR HEMOGLOBIN 24.2 pg (28.0-32.0); MEAN CORPUSCULAR VOLUME 77.2 fL (80.0-94.0); MEAN PLATELET VOLUME 7.7 fl (7.4-10.4); MONOCYTES % 8.9 % (2.0-8.0); NEUTROPHILS % 60.7 % (40.0-76.0); PLATELET 327 x1000/uL (130-400); RED CELL DISTRIBUTION WIDTH 17.1 % (11.6-14.6)
[2020-10-28 19:59] LABS: CHLORIDE 105 mEq/L (98-107)
[2020-10-28 21:08] VITALS: BP 139/70
== END 2020-10-28 21:08 | disposition home or self-care (01) ==
LOC: ER 18:11
DX: R07.89 Other chest pain (principal); R07.0 Pain in throat; F41.1 Generalized anxiety disorder; F43.0 Acute stress reaction; M79.672 Pain in left foot; M79.671 Pain in right foot; I10 Essential (primary) hypertension; J44.9 Chronic obstructive pulmonary disease, unspecified; Z79.899 Other long term (current) drug therapy
CPT/HCPCS: 36415; 71045; 80053; 83880; 84484; 85025; 93005; 99285

== ENCOUNTER 2021-01-03 14:12 | Emergency (ER) | payer MEDICARE, MEDICAID ==
[~2021-01-03] VITALS: Ht 170.2 cm; Wt 72.0 kg
[~2021-01-03 14:12] MED LIST changes: +AMLO10TA4 MT; +ATOR20TA PO; +CLOP75TA15 PO; +DOXY100T2 MT; +FOLI-43 PO; +IBUP-2028 MT; +MEMA5TAB7 PO; +THIA100T72 PO
[2021-01-03 14:15] VITALS: BP 158/80
== END 2021-01-03 17:09 | disposition left against medical advice (07) ==
LOC: ER 14:12
DX: Z53.21 Procedure and treatment not carried out due to patient leaving prior to being seen by health care provider (principal)

== ENCOUNTER 2021-01-03 20:03 | Emergency (ER) | payer MEDICARE, MEDICAID ==
[~2021-01-03] VITALS: Ht 170.2 cm; Wt 62.0 kg
[2021-01-04 00:36] VITALS: BP 158/62
== END 2021-01-04 02:10 | disposition home or self-care (01) ==
LOC: ER 20:03
DX: R07.89 Other chest pain (principal); G89.29 Other chronic pain; R51.9 Headache, unspecified; I10 Essential (primary) hypertension; F17.210 Nicotine dependence, cigarettes, uncomplicated; Z71.6 Tobacco abuse counseling
CPT/HCPCS: 93005; 99283; 99406

== ENCOUNTER 2021-01-11 15:54 | Emergency (ER) | payer MEDICARE, MEDICAID ==
[~2021-01-11] VITALS: Ht 172.7 cm; Wt 73.0 kg
[2021-01-11 16:04] VITALS: BP 174/72
[2021-01-11 19:14] LABS: HEMATOCRIT. 34.8 % (42.0-52.0); HEMOGLOBIN. 10.8 g/dL (14.0-18.0); MEAN CORPUSCULAR HEMOGLOBIN 23.3 pg (28.0-32.0); MEAN CORPUSCULAR VOLUME 74.9 fL (80.0-94.0); MEAN PLATELET VOLUME 7.7 fl (7.4-10.4); PLATELET 348 x1000/uL (130-400); RED BLOOD CELL COUNT 4.64 mill/uL (4.7-6.1); RED CELL DISTRIBUTION WIDTH 17.2 % (11.6-14.6)
[2021-01-11 19:19] LABS: CHLORIDE 105 mEq/L (98-107)
[2021-01-11 19:55] LABS: PLATELET ESTIMATE NORMAL
== END 2021-01-11 21:56 | disposition left against medical advice (07) ==
LOC: ER 17:20
DX: M79.10 Myalgia, unspecified site (principal); Z53.21 Procedure and treatment not carried out due to patient leaving prior to being seen by health care provider
CPT/HCPCS: 36415; 80053; 85025; 99283

== ENCOUNTER 2021-01-12 00:52 | Emergency (ER) | payer MEDICARE, MEDICAID ==
[~2021-01-12] VITALS: Ht 172.7 cm; Wt 73.0 kg
[2021-01-12 01:15] VITALS: BP 163/89
[2021-01-12] MEDS ORDERED: ASPIRIN 81MG TABLET PO ONE (02:30)
[2021-01-12] MEDS ORDERED: NITROGLYCERIN 0.4MG TABLET SL SL PRN (02:30)
== END 2021-01-12 06:05 | disposition left against medical advice (07) ==
LOC: ER 01:40
DX: R07.89 Other chest pain (principal); Z53.21 Procedure and treatment not carried out due to patient leaving prior to being seen by health care provider
CPT/HCPCS: 93005

== ENCOUNTER 2021-01-16 15:12 | Emergency (ER) | payer MEDICARE, MEDICAID ==
[~2021-01-16] VITALS: Ht 167.6 cm; Wt 63.0 kg
[2021-01-16 15:46] VITALS: BP 162/76
[2021-01-16] MEDS ORDERED: GABAPENTIN 100MG CAPSULE PO ONE (16:30)
[2021-01-16] MEDS ORDERED: GABA100C MT (16:37)
== END 2021-01-16 19:14 | disposition home or self-care (01) ==
LOC: ER 15:12
DX: G62.9 Polyneuropathy, unspecified (principal); I49.9 Cardiac arrhythmia, unspecified
CPT/HCPCS: 93005; 99283

== ENCOUNTER 2021-01-19 18:13 | Emergency (ER) | payer MEDICARE, MEDICAID ==
[~2021-01-19] VITALS: Ht 172.7 cm; Wt 73.0 kg
[~2021-01-19 18:13] MED LIST changes: +GABA100C MT
[2021-01-19 21:29] VITALS: BP 127/82
[2021-01-19] MEDS ORDERED: GABA-532 MT (22:16)
[2021-01-19] MEDS ORDERED: HYDROCODONE/ACETAMINOPHEN 10/325MG TABLET PO ONE (22:30)
[2021-01-19] MEDS ORDERED: GABAPENTIN 300MG CAPSULE PO SCH (22:30)
== END 2021-01-19 22:31 | disposition home or self-care (01) ==
LOC: ER 18:13
DX: G62.9 Polyneuropathy, unspecified (principal); I10 Essential (primary) hypertension; J44.1 Chronic obstructive pulmonary disease with (acute) exacerbation; Z79.899 Other long term (current) drug therapy
CPT/HCPCS: 99283

== ENCOUNTER 2021-01-19 23:29 | Emergency (ER) | payer MEDICARE, MEDICAID ==
[~2021-01-19] VITALS: Ht 170.2 cm; Wt 66.0 kg
[~2021-01-19 23:29] MED LIST changes: +GABA-532 MT
[2021-01-20] MEDS ORDERED: ACETAMINOPHEN 325MG TABLET PO ONE (03:30)
[2021-01-20 04:57] VITALS: BP 134/88
== END 2021-01-20 04:59 | disposition home or self-care (01) ==
LOC: ER 23:29
DX: M79.18 Myalgia, other site (principal); I10 Essential (primary) hypertension; J44.9 Chronic obstructive pulmonary disease, unspecified; F41.9 Anxiety disorder, unspecified
CPT/HCPCS: 99281; 99283

== ENCOUNTER 2021-01-31 17:11 | Emergency (ER) | payer MEDICARE, MEDICAID ==
[~2021-01-31] VITALS: Ht 165.1 cm; Wt 73.0 kg
[2021-01-31 17:13] VITALS: BP 216/80
[2021-01-31] MEDS ORDERED: ACETAMINOPHEN 325MG TABLET PO ONE (20:15)
== END 2021-01-31 21:05 | disposition left against medical advice (07) ==
LOC: ER 17:11
DX: M54.42 Lumbago with sciatica, left side (principal); M54.41 Lumbago with sciatica, right side; G89.29 Other chronic pain; I10 Essential (primary) hypertension
CPT/HCPCS: 93005; 99283

== ENCOUNTER 2021-02-03 16:44 | Emergency (ER) | payer MEDICARE, MEDICAID ==
[~2021-02-03] VITALS: Ht 167.6 cm; Wt 72.0 kg
[2021-02-03 16:48] VITALS: BP 142/80
[2021-02-03] MEDS ORDERED: GABA-529 MT (19:58)
== END 2021-02-03 22:55 | disposition left against medical advice (07) ==
LOC: ER 16:44
DX: G62.9 Polyneuropathy, unspecified (principal); F03.90 Unspecified dementia, unspecified severity, without behavioral disturbance, psychotic disturbance, mood disturbance, and anxiety
CPT/HCPCS: 99283

== ENCOUNTER 2021-03-06 12:25 | Emergency (ER) | payer OTHER, MEDICAID ==
[~2021-03-06] VITALS: Ht 167.6 cm; Wt 66.0 kg
[~2021-03-06 12:25] MED LIST changes: -DOXY100C2 MT; +DOXY100C5 MT; +GABA-529 MT; -OMEP40CA12 PO; +OMEP40CA20 PO
[2021-03-06 12:26] VITALS: BP 134/68
[2021-03-06] MEDS ORDERED: ACETAMINOPHEN 325MG TABLET PO ONE (16:45)
[2021-03-06] MEDS ORDERED: TOPUD MT (16:47)
== END 2021-03-06 17:42 | disposition home or self-care (01) ==
LOC: ER 12:25
DX: G62.9 Polyneuropathy, unspecified (principal); I10 Essential (primary) hypertension; Z79.899 Other long term (current) drug therapy
CPT/HCPCS: 99283

== ENCOUNTER 2021-03-11 14:47 | Emergency (ER) | payer OTHER, MEDICAID ==
[~2021-03-11] VITALS: Ht 172.7 cm; Wt 75.0 kg
[~2021-03-11 14:47] MED LIST changes: +TOPUD MT
[2021-03-11 14:52] VITALS: BP 137/63
[2021-03-11] MEDS ORDERED: ACETAMINOPHEN 325MG TABLET PO ONE ×2 (15:15→15:30)
[2021-03-11 16:38] LABS: BASOPHILS % 1.1 % (0.0-2.0); EOSINOPHILS % 4.1 % (0.0-5.0); HEMATOCRIT. 34.1 % (42.0-52.0); HEMOGLOBIN. 10.3 g/dL (14.0-18.0); LYMPHOCYTES % 47.2 % (20.0-50.0); MEAN CORPUSCULAR HEMOGLOBIN 23.4 pg (28.0-32.0); MEAN CORPUSCULAR VOLUME 77.9 fL (80.0-94.0); MONOCYTES % 10.9 % (2.0-8.0); NEUTROPHILS % 36.7 % (40.0-76.0); PLATELET 264 x1000/uL (130-400); RED BLOOD CELL COUNT 4.37 mill/uL (4.7-6.1); RED CELL DISTRIBUTION WIDTH 18.7 % (11.6-14.6)
[2021-03-11 16:50] LABS: CHLORIDE 103 mEq/L (98-107)
[2021-03-11 17:25] LABS: VITAMIN B12 SERUM 613 pg/mL (211-911)
[2021-03-11] MEDS ORDERED: ACETAMINOPHEN 325MG TABLET PO NR (19:15)
[2021-03-11] MEDS ORDERED: ASPIRIN 325MG EC TABLET PO ONE (20:00)
== END 2021-03-11 20:20 | disposition home or self-care (01) ==
LOC: ER 15:04 → CANBEDREQ 03-12 03:55
DX: R07.89 Other chest pain (principal); R20.2 Paresthesia of skin; F41.9 Anxiety disorder, unspecified; I10 Essential (primary) hypertension
CPT/HCPCS: 36415; 80048; 82607; 83735; 84443; 84484; 85025; 86592; 93005; 99284

== ENCOUNTER 2021-03-22 16:46 | Emergency (ER) | payer OTHER, MEDICAID ==
[~2021-03-22] VITALS: Ht 167.6 cm; Wt 82.0 kg
[2021-03-22 16:48] VITALS: BP 167/117
[2021-03-22] MEDS ORDERED: ASPIRIN 81MG TABLET PO ONE (17:30)
== END 2021-03-22 17:40 | disposition left against medical advice (07) ==
LOC: ER 16:46
DX: R07.89 Other chest pain (principal); M79.602 Pain in left arm; I10 Essential (primary) hypertension; R45.1 Restlessness and agitation
CPT/HCPCS: 99283

== ENCOUNTER 2021-06-09 10:05 | Emergency (ER) | payer MEDICARE, MEDICAID ==
[~2021-06-09] VITALS: Ht 180.3 cm; Wt 75.0 kg
[2021-06-09] MEDS ORDERED: IBUPROFEN 800MG TABLET PO ONE (11:15)
[2021-06-09 11:39] VITALS: BP 165/56
== END 2021-06-09 11:46 | disposition home or self-care (01) ==
LOC: ER 10:43
DX: G62.9 Polyneuropathy, unspecified (principal); I10 Essential (primary) hypertension; Z98.890 Other specified postprocedural states; Z79.899 Other long term (current) drug therapy
CPT/HCPCS: 99283

== ENCOUNTER 2021-06-09 14:53 | Emergency (ER) | payer MEDICARE, MEDICAID ==
[~2021-06-09] VITALS: Ht 167.6 cm; Wt 54.0 kg
[2021-06-09 14:59] VITALS: BP 147/74
== END 2021-06-09 20:41 | disposition left against medical advice (07) ==
LOC: ER 14:53
DX: Z53.21 Procedure and treatment not carried out due to patient leaving prior to being seen by health care provider (principal)

== ENCOUNTER 2021-06-11 19:32 | Emergency (ER) | payer MEDICARE, MEDICAID ==
[~2021-06-11] VITALS: Ht 172.7 cm; Wt 64.0 kg
[2021-06-11 19:40] VITALS: BP 168/88
[2021-06-11] MEDS ORDERED: ACETAMINOPHEN 325MG TABLET PO ONE (20:00)
[2021-06-11] MEDS ORDERED: HYDR-4133 PO (21:07)
[2021-06-11] MEDS ORDERED: AMLO10TA4 MT (21:07)
== END 2021-06-12 03:09 | disposition home or self-care (01) ==
LOC: ER 19:32
DX: R51.9 Headache, unspecified (principal); F41.9 Anxiety disorder, unspecified; I10 Essential (primary) hypertension; G89.29 Other chronic pain; Z79.899 Other long term (current) drug therapy
CPT/HCPCS: 99283

== ENCOUNTER 2022-02-11 03:28 | Emergency (ER) | payer MEDICARE, MEDICAID ==
[~2022-02-11] VITALS: Ht 160 cm; Wt 64.0 kg
[~2022-02-11 03:28] MED LIST changes: +ENOX40SY27 SQ; -LOV40 SQ
[2022-02-11] MEDS ORDERED: TOPUD PO (05:26)
[2022-02-11] MEDS ORDERED: ACETAMINOPHEN 325MG TABLET PO ONE (05:30)
[2022-02-11 06:30] VITALS: BP 132/60
== END 2022-02-11 08:58 | disposition home or self-care (01) ==
LOC: ER 03:28
DX: G89.29 Other chronic pain (principal); M79.605 Pain in left leg; M79.604 Pain in right leg; M54.9 Dorsalgia, unspecified; I10 Essential (primary) hypertension; R51.9 Headache, unspecified
CPT/HCPCS: 99283

== ENCOUNTER 2022-02-14 11:54 | Emergency (ER) | payer MEDICARE, MEDICAID ==
[~2022-02-14] VITALS: Ht 167.6 cm; Wt 86.0 kg
[2022-02-14] MEDS ORDERED: GABAPENTIN 300MG CAPSULE PO ONE (13:15)
[2022-02-14] MEDS ORDERED: ACETAMINOPHEN 325MG TABLET PO ONE (13:15)
[2022-02-14] MEDS ORDERED: KETOROLAC 60MG/2ML VIAL IM ONE (13:15)
[2022-02-14 13:35] VITALS: BP 120/63
== END 2022-02-14 14:35 | disposition home or self-care (01) ==
LOC: ER 11:54
DX: G62.9 Polyneuropathy, unspecified (principal); I10 Essential (primary) hypertension; E11.9 Type 2 diabetes mellitus without complications
CPT/HCPCS: 96372; 99283; J1885

== ENCOUNTER 2022-02-20 14:26 | Emergency (ER) | payer MEDICARE, MEDICAID ==
[~2022-02-20] VITALS: Ht 170.2 cm; Wt 77.5 kg
[2022-02-20 14:32] VITALS: BP 144/82
[2022-02-20] MEDS ORDERED: GABAPENTIN 300MG CAPSULE PO STA (15:15)
[2022-02-20] MEDS ORDERED: ACETAMINOPHEN 325MG TABLET PO STA (15:15)
[2022-02-20 15:59] LABS: BASOPHILS % 0.2 % (0.0-2.0); HEMATOCRIT. 37.4 % (42.0-52.0); HEMOGLOBIN. 11.4 g/dL (14.0-18.0); LYMPHOCYTES % 40.7 % (20.0-50.0); MEAN CORPUSCULAR VOLUME 79.1 fL (80.0-94.0); MEAN PLATELET VOLUME 8.1 fl (7.4-10.4); MONOCYTES % 8.7 % (2.0-8.0); NEUTROPHILS % 46.4 % (40.0-76.0); PLATELET 363 x1000/uL (130-400); RED BLOOD CELL COUNT 4.73 mill/uL (4.7-6.1); RED CELL DISTRIBUTION WIDTH 17.9 % (11.6-14.6)
[2022-02-20 16:04] LABS: CHLORIDE 106 mEq/L (98-107)
[2022-02-20 16:09] LABS: ETHANOL BLOOD 15 mg/dL
[2022-02-20 16:32] LABS: *AMPHETAMINES SCREEN URINE NEGATIVE (NEGATIVE); *BARBITURATES SCREEN URINE NEGATIVE (NEGATIVE); *BENZODIAZEPINES SCREEN URINE NEGATIVE (NEGATIVE); *COCAINE SCREEN URINE NEGATIVE (NEGATIVE); CANNABINOID URINE SCREEN NEGATIVE (NEGATIVE); METHADONE URINE SCREEN NEGATIVE (NEGATIVE); OPIATES URINE SCREEN NEGATIVE (NEGATIVE); PHENCYCLIDINE URINE SCREEN NEGATIVE (NEGATIVE)
[2022-02-20] MEDS ORDERED: NAPROXEN 375MG TABLET PO SCH (17:07)
== END 2022-02-20 18:38 | disposition home or self-care (01) ==
LOC: ER 14:26
DX: G62.9 Polyneuropathy, unspecified (principal); R51.9 Headache, unspecified; D50.9 Iron deficiency anemia, unspecified; I10 Essential (primary) hypertension
CPT/HCPCS: 36415; 80048; 80305; 80320; 85025; 99283; G0480

== ENCOUNTER 2022-03-12 11:33 | Emergency (ER) | payer MEDICARE, MEDICAID ==
[~2022-03-12] VITALS: Ht 170.2 cm; Wt 71.0 kg
[2022-03-12 11:41] VITALS: BP 130/80
[2022-03-12] MEDS ORDERED: GABA100C MT (11:50)
== END 2022-03-12 12:00 | disposition home or self-care (01) ==
LOC: ER 11:52
DX: G62.9 Polyneuropathy, unspecified (principal); I10 Essential (primary) hypertension; Z79.899 Other long term (current) drug therapy; Z98.890 Other specified postprocedural states
CPT/HCPCS: 99283

== ENCOUNTER 2022-03-23 19:40 | Emergency (ER) | payer MEDICARE, MEDICAID ==
[~2022-03-23] VITALS: Ht 175.3 cm; Wt 82.0 kg
[2022-03-23 19:51] VITALS: BP 168/71
== END 2022-03-24 | disposition left against medical advice (07) ==
LOC: ER 19:40
DX: M79.18 Myalgia, other site (principal); F41.9 Anxiety disorder, unspecified; I10 Essential (primary) hypertension; Z79.899 Other long term (current) drug therapy
CPT/HCPCS: 99283

== ENCOUNTER 2022-05-11 06:27 | Emergency (ER) | payer MEDICARE, MEDICAID ==
[~2022-05-11] VITALS: Ht 170.2 cm; Wt 68.0 kg
[~2022-05-11 06:27] MED LIST changes: -CILO100T; +CILO100T3; +SIMV-343 PO; -SIMV20TA2 PO
[2022-05-11 06:36] VITALS: BP 190/81
[2022-05-11] MEDS ORDERED: ACETAMINOPHEN 325MG TABLET PO ONE (06:45)
== END 2022-05-11 11:22 | disposition left against medical advice (07) ==
LOC: ER 06:27
DX: R20.8 Other disturbances of skin sensation (principal); F03.90 Unspecified dementia, unspecified severity, without behavioral disturbance, psychotic disturbance, mood disturbance, and anxiety
CPT/HCPCS: 99283

== ENCOUNTER 2022-07-17 18:09 | Emergency (ER) | payer MEDICARE, MEDICAID ==
[~2022-07-17] VITALS: Ht 170.2 cm; Wt 68.0 kg
[2022-07-17 18:12] VITALS: BP 148/67
[2022-07-17] MEDS ORDERED: ACETAMINOPHEN 325MG TABLET PO ONE (21:00)
[2022-07-17] MEDS ORDERED: GABAPENTIN 100MG CAPSULE PO ONE (21:00)
[2022-07-17] MEDS ORDERED: GABA-529 MT (21:28)
== END 2022-07-17 22:19 | disposition home or self-care (01) ==
LOC: ER 18:09
DX: G62.9 Polyneuropathy, unspecified (principal); F17.210 Nicotine dependence, cigarettes, uncomplicated; I10 Essential (primary) hypertension; Z71.6 Tobacco abuse counseling
CPT/HCPCS: 99283